=== PATIENT | male | born 1960 | race African-American/Black ===

== ENCOUNTER 2017-07-15 09:16 | Emergency (ER) | payer SELFPAY ==
[~2017-07-15 09:16] MED LIST: BENZ1TAB10 PO; DIVA500T35 PO; HALO5 PO; METF1000 PO
== END 2017-07-15 09:45 | disposition left against medical advice (07) ==
LOC: EMS 09:16
DX: F20.9 Schizophrenia, unspecified (principal)
CPT/HCPCS: 99284

== ENCOUNTER 2018-08-07 13:05 | Inpatient (IN) | payer MEDICAID ==
[~2018-08-07] VITALS: Ht 170.2 cm; Wt 63.0 kg
[~2018-08-07 13:05] MED LIST changes: +DIVA-78 PO; -DIVA500T35 PO; -HALO5 PO; +PALI234D IM
[2018-08-07] MEDS ORDERED: LORazepam 2 MG/ML VIAL IM ONE (14:45)
[2018-08-07] MEDS ORDERED: HALOPERIDOL LACTATE 5 MG/ML VIAL IM ONE (14:45)
[2018-08-07] MEDS ORDERED: HALOPERIDOL 5 MG TABLET PO PRN (15:15)
[2018-08-07] MEDS ORDERED: ZOLPIDEM TARTRATE 10 MG TABLET PO PRN (15:15)
[2018-08-07 15:54] LABS: BASOPHILS % (AUTO) 0.8 % (0.0-2.0); EOSINOPHILS % (AUTO) 5.1 % (1.0-6.0); HEMATOCRIT 38.9 % (41-53); HEMOGLOBIN 13.4 g/dL (13.5-17.5); LYMPHOCYTES # (AUTO) 1.6 K/uL (1.0-4.8); MEAN CORPUSCULAR HEMOGLOBIN 28.4 pg (26.0-34.0); MEAN CORPUSCULAR HGB CONC 34.5 G/dL (31.0-37.0); MEAN CORPUSCULAR VOLUME 82 fL (80-100); MONOCYTES # (AUTO) 0.4 K/uL (0.1-1.0); MONOCYTES % (AUTO) 7.6 % (2.0-9.0); NEUTROPHILS # (AUTO) 2.9 K/uL (1.8-7.7); NEUTROPHILS % (AUTO) 56.5 % (40.0-70.0); PLATELET COUNT (AUTO) 261 K/uL (150-450); RED BLOOD CELL COUNT(AUTO) 4.73 MIL/uL (4.50-5.90)
[2018-08-07 16:04] LABS: ANION GAP 8 mmol/L (8-16); CARBON DIOXIDE 27 mmol/L (22-29); CHLORIDE 100 mmol/L (98-107); CREATININE 0.92 mg/dL (0.60-1.30); GLOMERULAR FILTR. RATE CALC > 60 mL/min (>60); GLUCOSE,RANDOM 335 mg/dL (70-110); POTASSIUM 3.9 mmol/L (3.5-5.1); SODIUM SERUM 135 mmol/L (136-145); UREA NITROGEN, BLOOD 12 mg/dL (7-18)
[2018-08-07 16:11] LABS: ALANINE AMINOTRANSFERASE 14 U/L (12-78); ALBUMIN 3.6 g/dL (3.4-5.0); ALKALINE PHOSPHATASE 62 U/L (46-116); ASPARTATE AMINOTRANSFERASE 12 U/L (15-37); BILIRUBIN,TOTAL 0.5 mg/dL (0.1-1.0); TOTAL PROTEIN, SERUM 6.8 g/dL (6.4-8.2)
[2018-08-07 16:12] LABS: VALPROIC ACID < 3 mcg/mL (50-100)
[2018-08-07] MEDS ORDERED: INSULIN REGULAR, HUMAN 100 UNITS/ML SQ ONE (16:15)
[2018-08-07 17:53] LABS: GLUCOSE,POINT OF CARE 291 MG/DL (70-110)
[2018-08-07 18:57] VITALS: BP 107/61
[2018-08-07 19:13] LABS: GLUCOMETER DEV NAME(LOC) BV3N5; GLUCOSE,POINT OF CARE 311 MG/DL (70-110)
[2018-08-07] MEDS ORDERED: ONDANSETRON HCL 4 MG TABLET PO PRN (19:15)
[2018-08-07] MEDS ORDERED: GuaiFENesin/D-METHORPHAN [SUGAR-FREE] 200-20MG/10 ML SYRUP UDCUP PO PRN (19:15)
[2018-08-07] MEDS ORDERED: ALBUTEROL SULFATE HFA 90 MCG/PUFF 8 GM INHALER IH PRN (19:15)
[2018-08-07] MEDS ORDERED: LOPERAMIDE HCL 2 MG CAPSULE PO PRN (19:15)
[2018-08-07] MEDS ORDERED: DOCUSATE SODIUM 100 MG CAPSULE PO PRN (19:15)
[2018-08-07] MEDS ORDERED: ACETAMINOPHEN 325 MG TABLET PO PRN (19:15)
[2018-08-07] MEDS ORDERED: CloNIDine HCL 0.1 MG TABLET PO PRN (19:15)
[2018-08-07] MEDS ORDERED: MAG HYDROX/AL HYDROX/SIMETH ES 30 ML SUSPENSION UDCUP PO PRN (19:15)
[2018-08-07] MEDS ORDERED: PETROLATUM,WHITE 71 GM JELLY TP PRN (19:15)
[2018-08-07] MEDS ORDERED: NICOTINE 14 MG/24 HOUR PATCH TD PRN (19:15)
[2018-08-07] MEDS ORDERED: IBUPROFEN 400 MG TABLET PO PRN (19:15)
[2018-08-07] MEDS ORDERED: GLUCAGON,HUMAN RECOMBINANT 1 MG VIAL IM PRN (19:15)
[2018-08-07] MEDS ORDERED: MAGNESIUM HYDROXIDE SUSPENSION 30 ML UDCUP PO PRN (19:15)
[2018-08-07 21:09] LABS: GLUCOMETER DEV NAME(LOC) BV3N5; GLUCOSE,POINT OF CARE 321 MG/DL (70-110)
[2018-08-07] MEDS: INSULIN LISPRO 100 UNITS/ML SQ PRN (21:10)
[2018-08-08] MEDS: FERROUS SULFATE 325 MG EC TABLET PO SCH ×3 (06:21→16:36)
[2018-08-08] MEDS: MetFORMIN HCL 500 MG TABLET PO SCH ×2 (06:22→16:36)
[2018-08-08 06:33] VITALS: BP 114/68
[2018-08-08 08:02] VITALS: BP 108/68
[2018-08-08] MEDS: INSULIN LISPRO 100 UNITS/ML SQ PRN (11:41)
[2018-08-08 11:44] LABS: GLUCOMETER DEV NAME(LOC) BV3N5; GLUCOSE,POINT OF CARE 351 MG/DL (70-110)
[2018-08-08] MEDS: PALIPERIDONE 6 MG ER TABLET PO SCH (20:20)
[2018-08-09] MEDS ORDERED: INSULIN REGULAR, HUMAN 100 UNITS/ML SQ ONE (06:15)
[2018-08-09 06:19] LABS: GLUCOMETER DEV NAME(LOC) BV3N5; GLUCOSE,POINT OF CARE 348 MG/DL (70-110)
[2018-08-09 06:19] LABS: GLUCOMETER DEV NAME(LOC) BV3N5; GLUCOSE,POINT OF CARE 402 MG/DL (70-110)
[2018-08-09] MEDS: MetFORMIN HCL 500 MG TABLET PO SCH ×2 (06:19→17:00)
[2018-08-09] MEDS: FERROUS SULFATE 325 MG EC TABLET PO SCH ×3 (06:19→17:00)
[2018-08-09 06:30] VITALS: BP 114/72
[2018-08-09 07:47] LABS: HEMOGLOBIN A1C 10.9 % (4.5-6.2)
[2018-08-09 07:59] LABS: THYROID STIMULATING HORMONE 1.07 uIU/mL (0.36-3.74)
[2018-08-09 12:14] LABS: GLUCOMETER DEV NAME(LOC) BV3N5; GLUCOSE,POINT OF CARE 305 MG/DL (70-110)
[2018-08-09] MEDS: PALIPERIDONE 6 MG ER TABLET PO SCH (20:51)
[2018-08-10] MEDS: FERROUS SULFATE 325 MG EC TABLET PO SCH ×3 (06:15→16:10)
[2018-08-10] MEDS: MetFORMIN HCL 500 MG TABLET PO SCH ×2 (06:15→16:11)
[2018-08-10] MEDS: PALIPERIDONE 6 MG ER TABLET PO SCH (20:35)
[2018-08-11] MEDS: MetFORMIN HCL 500 MG TABLET PO SCH ×2 (07:00→16:21)
[2018-08-11] MEDS: FERROUS SULFATE 325 MG EC TABLET PO SCH ×3 (07:00→16:21)
[2018-08-11] MEDS: PALIPERIDONE 6 MG ER TABLET PO SCH (20:05)
[2018-08-12] MEDS: MetFORMIN HCL 500 MG TABLET PO SCH ×2 (06:44→16:46)
[2018-08-12] MEDS: FERROUS SULFATE 325 MG EC TABLET PO SCH ×3 (06:44→16:46)
[2018-08-12] MEDS: PALIPERIDONE 6 MG ER TABLET PO SCH (20:20)
[2018-08-13] MEDS: FERROUS SULFATE 325 MG EC TABLET PO SCH ×3 (06:37→17:00)
[2018-08-13] MEDS: MetFORMIN HCL 500 MG TABLET PO SCH ×2 (06:37→17:00)
[2018-08-13] MEDS: PALIPERIDONE 6 MG ER TABLET PO SCH (20:04)
[2018-08-14] MEDS: FERROUS SULFATE 325 MG EC TABLET PO SCH ×3 (06:35→16:40)
[2018-08-14] MEDS: MetFORMIN HCL 500 MG TABLET PO SCH ×2 (06:35→16:40)
[2018-08-14] MEDS ORDERED: HALOPERIDOL LACTATE 5 MG/ML VIAL IM PRN (16:30)
[2018-08-14] MEDS: PALIPERIDONE 6 MG ER TABLET PO SCH (20:45)
[2018-08-15] MEDS: MetFORMIN HCL 500 MG TABLET PO SCH ×2 (06:50→16:46)
[2018-08-15] MEDS: FERROUS SULFATE 325 MG EC TABLET PO SCH ×3 (06:50→16:46)
[2018-08-15] MEDS ORDERED: FERR-89 PO (13:11)
[2018-08-15] MEDS ORDERED: PALI6 PO (13:11)
[2018-08-15 16:30] VITALS: BP 103/65
[2018-08-15] MEDS: INSULIN LISPRO 100 UNITS/ML SQ PRN ×2 (17:17→21:01)
[2018-08-15] MEDS: PALIPERIDONE 6 MG ER TABLET PO SCH (20:46)
[2018-08-16 02:45] VITALS: BP 106/69
[2018-08-16] MEDS: MetFORMIN HCL 500 MG TABLET PO SCH ×2 (06:11→16:40)
[2018-08-16] MEDS: FERROUS SULFATE 325 MG EC TABLET PO SCH ×3 (06:11→16:40)
[2018-08-16] MEDS: INSULIN LISPRO 100 UNITS/ML SQ PRN ×4 (06:36→20:50)
[2018-08-16 08:01] VITALS: BP 106/67
[2018-08-16 08:52] LABS: BASOPHILS % (AUTO) 0.5 % (0.0-2.0); EOSINOPHILS % (AUTO) 1.3 % (1.0-6.0); HEMATOCRIT 36.2 % (41-53); HEMOGLOBIN 12.7 g/dL (13.5-17.5); LYMPHOCYTES % (AUTO) 26.8 % (22.0-44.0); MEAN CORPUSCULAR HEMOGLOBIN 28.4 pg (26.0-34.0); MEAN CORPUSCULAR VOLUME 81 fL (80-100); MONOCYTES # (AUTO) 0.4 K/uL (0.1-1.0); MONOCYTES % (AUTO) 4.9 % (2.0-9.0); NEUTROPHILS # (AUTO) 4.9 K/uL (1.8-7.7); NEUTROPHILS % (AUTO) 66.5 % (40.0-70.0); PLATELET COUNT (AUTO) 259 K/uL (150-450); RED BLOOD CELL COUNT(AUTO) 4.47 MIL/uL (4.50-5.90); RED CELL DISTRIBUTION WIDTH 13.1 % (11.5-14.5)
[2018-08-16 09:10] LABS: ALANINE AMINOTRANSFERASE 17 U/L (12-78); ALBUMIN 3.1 g/dL (3.4-5.0); ALKALINE PHOSPHATASE 53 U/L (46-116); ANION GAP 2 mmol/L (8-16); ASPARTATE AMINOTRANSFERASE 9 U/L (15-37); BILIRUBIN,TOTAL 0.3 mg/dL (0.1-1.0); CALCIUM, TOTAL 8.9 mg/dL (8.8-10.5); CARBON DIOXIDE 30 mmol/L (22-29); CHLORIDE 104 mmol/L (98-107); CHOL/HDL RATIO 5.5 (4.2-7.3); CHOLESTEROL 205 mg/dL (131-200); CREATININE 0.83 mg/dL (0.60-1.30); GLOMERULAR FILTR. RATE CALC > 60 mL/min (>60); GLUCOSE,RANDOM 319 mg/dL (70-110); HDL CHOLESTEROL 37 mg/dL (40-60); LDL CHOL (CALC.) 133 mg/dL (0-130); POTASSIUM 4.4 mmol/L (3.5-5.1); SODIUM SERUM 136 mmol/L (136-145); TRIGLYCERIDES 177 mg/dL (15-150); UREA NITROGEN, BLOOD 17 mg/dL (7-18)
[2018-08-16 11:58] LABS: GLUCOMETER DEV NAME(LOC) BV3N5; GLUCOSE,POINT OF CARE > 600 MG/DL (70-110)
[2018-08-16] MEDS ORDERED: INSULIN LISPRO 100 UNITS/ML SQ ONE (12:00)
[2018-08-16 15:57] LABS: GLUCOMETER DEV NAME(LOC) BV3N5; GLUCOSE,POINT OF CARE 180 MG/DL (70-110)
[2018-08-16 16:19] LABS: GLUCOMETER DEV NAME(LOC) BV3N5; GLUCOSE,POINT OF CARE 343 MG/DL (70-110)
[2018-08-16] MEDS: LORazepam 2 MG TABLET PO PRN (16:40)
[2018-08-16 16:43] LABS: GLUCOMETER DEV NAME(LOC) BV3N5; GLUCOSE,POINT OF CARE 343 MG/DL (70-110)
[2018-08-16 16:44] LABS: GLUCOMETER DEV NAME(LOC) BV3N5; GLUCOSE,POINT OF CARE 409 MG/DL (70-110)
[2018-08-16 17:35] VITALS: BP 111/63
[2018-08-16 17:35] LABS: GLUCOMETER DEV NAME(LOC) BV3N5; GLUCOSE,POINT OF CARE 294 MG/DL (70-110)
[2018-08-16] MEDS: PALIPERIDONE 6 MG ER TABLET PO SCH (20:56)
[2018-08-16 21:24] LABS: GLUCOMETER DEV NAME(LOC) BV3N5; GLUCOSE,POINT OF CARE 206 MG/DL (70-110)
[2018-08-17 03:27] VITALS: BP 119/58
[2018-08-17 06:24] LABS: GLUCOMETER DEV NAME(LOC) BV3N5; GLUCOSE,POINT OF CARE 338 MG/DL (70-110)
[2018-08-17] MEDS: MetFORMIN HCL 500 MG TABLET PO SCH ×2 (06:26→16:59)
[2018-08-17] MEDS: FERROUS SULFATE 325 MG EC TABLET PO SCH ×3 (06:26→16:59)
[2018-08-17] MEDS: INSULIN LISPRO 100 UNITS/ML SQ PRN ×4 (06:47→20:51)
[2018-08-17 11:59] LABS: GLUCOMETER DEV NAME(LOC) BV3N5; GLUCOSE,POINT OF CARE 315 MG/DL (70-110)
[2018-08-17 16:00] VITALS: BP 113/65
[2018-08-17 17:09] LABS: GLUCOMETER DEV NAME(LOC) BV3N5; GLUCOSE,POINT OF CARE 343 MG/DL (70-110)
[2018-08-17 20:58] LABS: GLUCOMETER DEV NAME(LOC) BV3N5; GLUCOSE,POINT OF CARE 290 MG/DL (70-110)
[2018-08-17] MEDS ORDERED: PALIPERIDONE 3 MG ER TABLET PO SCH (21:00)
[2018-08-18 05:14] VITALS: BP 105/62
[2018-08-18 06:10] LABS: GLUCOMETER DEV NAME(LOC) BV3N5; GLUCOSE,POINT OF CARE 327 MG/DL (70-110)
[2018-08-18] MEDS: MetFORMIN HCL 500 MG TABLET PO SCH ×2 (06:11→16:33)
[2018-08-18] MEDS: FERROUS SULFATE 325 MG EC TABLET PO SCH ×3 (06:11→16:33)
[2018-08-18] MEDS: INSULIN LISPRO 100 UNITS/ML SQ PRN ×3 (06:36→16:30)
[2018-08-18 08:02] VITALS: BP 108/67
[2018-08-18 11:49] LABS: GLUCOMETER DEV NAME(LOC) BV3N5; GLUCOSE,POINT OF CARE 301 MG/DL (70-110)
[2018-08-18 16:00] VITALS: BP 105/63
[2018-08-18 16:54] LABS: GLUCOMETER DEV NAME(LOC) BV3N5; GLUCOSE,POINT OF CARE 328 MG/DL (70-110)
[2018-08-18] MEDS: PALIPERIDONE 6 MG ER TABLET PO SCH (20:51)
[2018-08-18 21:08] LABS: GLUCOMETER DEV NAME(LOC) BV3N5; GLUCOSE,POINT OF CARE 281 MG/DL (70-110)
[2018-08-19 05:01] VITALS: BP 101/68
[2018-08-19] MEDS: FERROUS SULFATE 325 MG EC TABLET PO SCH ×3 (06:52→16:47)
[2018-08-19] MEDS: MetFORMIN HCL 500 MG TABLET PO SCH ×2 (06:52→16:47)
[2018-08-19 08:02] VITALS: BP 102/60
[2018-08-19 11:23] LABS: GLUCOMETER DEV NAME(LOC) BV3N5; GLUCOSE,POINT OF CARE 368 MG/DL (70-110)
[2018-08-19] MEDS: INSULIN LISPRO 100 UNITS/ML SQ PRN ×3 (11:54→21:20)
[2018-08-19 16:00] VITALS: BP 105/65
[2018-08-19 17:29] LABS: GLUCOMETER DEV NAME(LOC) BV3N5; GLUCOSE,POINT OF CARE 281 MG/DL (70-110)
[2018-08-19] MEDS: PALIPERIDONE 6 MG ER TABLET PO SCH (21:15)
[2018-08-19 21:59] LABS: GLUCOMETER DEV NAME(LOC) BV3N5; GLUCOSE,POINT OF CARE 284 MG/DL (70-110)
[2018-08-20 06:04] VITALS: BP 112/67
[2018-08-20 06:49] LABS: GLUCOMETER DEV NAME(LOC) BV3N5; GLUCOSE,POINT OF CARE 279 MG/DL (70-110)
[2018-08-20] MEDS: INSULIN LISPRO 100 UNITS/ML SQ PRN ×4 (07:00→20:53)
[2018-08-20] MEDS: FERROUS SULFATE 325 MG EC TABLET PO SCH ×3 (07:01→17:00)
[2018-08-20] MEDS: GlipiZIDE 5 MG TABLET PO SCH (07:01)
[2018-08-20] MEDS: MetFORMIN HCL 500 MG TABLET PO SCH ×2 (07:02→17:00)
[2018-08-20 11:24] LABS: GLUCOMETER DEV NAME(LOC) BV3N5; GLUCOSE,POINT OF CARE 244 MG/DL (70-110)
[2018-08-20 16:27] VITALS: BP 115/60
[2018-08-20] MEDS: LORazepam 2 MG TABLET PO PRN (17:00)
[2018-08-20 17:19] LABS: GLUCOMETER DEV NAME(LOC) BV3N5; GLUCOSE,POINT OF CARE 296 MG/DL (70-110)
[2018-08-20] MEDS: PALIPERIDONE 6 MG ER TABLET PO SCH (20:43)
[2018-08-20 21:14] LABS: GLUCOMETER DEV NAME(LOC) BV3N5; GLUCOSE,POINT OF CARE 268 MG/DL (70-110)
[2018-08-21 03:40] VITALS: BP 112/67
[2018-08-21 06:40] LABS: GLUCOMETER DEV NAME(LOC) BV3N5; GLUCOSE,POINT OF CARE 275 MG/DL (70-110)
[2018-08-21] MEDS: GlipiZIDE 5 MG TABLET PO SCH (06:42)
[2018-08-21] MEDS: MetFORMIN HCL 500 MG TABLET PO SCH ×2 (06:42→16:56)
[2018-08-21] MEDS: FERROUS SULFATE 325 MG EC TABLET PO SCH ×3 (06:42→16:56)
[2018-08-21] MEDS: INSULIN LISPRO 100 UNITS/ML SQ PRN ×4 (06:50→20:31)
[2018-08-21 08:49] VITALS: BP 112/68
[2018-08-21 12:04] LABS: GLUCOMETER DEV NAME(LOC) BV3N5; GLUCOSE,POINT OF CARE 239 MG/DL (70-110)
[2018-08-21 17:29] LABS: GLUCOMETER DEV NAME(LOC) BV3N5; GLUCOSE,POINT OF CARE 322 MG/DL (70-110)
[2018-08-21] MEDS: PALIPERIDONE 6 MG ER TABLET PO SCH (20:30)
[2018-08-21 20:49] LABS: GLUCOMETER DEV NAME(LOC) BV3N5; GLUCOSE,POINT OF CARE 252 MG/DL (70-110)
[2018-08-22 05:20] VITALS: BP 107/63
[2018-08-22 06:14] LABS: GLUCOMETER DEV NAME(LOC) BV3N5; GLUCOSE,POINT OF CARE 306 MG/DL (70-110)
[2018-08-22] MEDS: GlipiZIDE 5 MG TABLET PO SCH (06:16)
[2018-08-22] MEDS: MetFORMIN HCL 500 MG TABLET PO SCH ×2 (06:17→16:35)
[2018-08-22] MEDS: FERROUS SULFATE 325 MG EC TABLET PO SCH ×3 (06:17→16:35)
[2018-08-22] MEDS: INSULIN LISPRO 100 UNITS/ML SQ PRN ×4 (06:24→21:00)
[2018-08-22 11:34] LABS: GLUCOMETER DEV NAME(LOC) BV3N5; GLUCOSE,POINT OF CARE 334 MG/DL (70-110)
[2018-08-22 16:49] LABS: GLUCOMETER DEV NAME(LOC) BV3N5; GLUCOSE,POINT OF CARE 260 MG/DL (70-110)
[2018-08-22] MEDS: PALIPERIDONE 6 MG ER TABLET PO SCH (21:16)
[2018-08-22 21:28] LABS: GLUCOMETER DEV NAME(LOC) BV3N5; GLUCOSE,POINT OF CARE 270 MG/DL (70-110)
[2018-08-23] MEDS: GlipiZIDE 5 MG TABLET PO SCH (06:12)
[2018-08-23] MEDS: FERROUS SULFATE 325 MG EC TABLET PO SCH ×3 (06:12→17:00)
[2018-08-23] MEDS: MetFORMIN HCL 500 MG TABLET PO SCH ×2 (06:12→17:00)
[2018-08-23 06:14] LABS: GLUCOMETER DEV NAME(LOC) BV3N5; GLUCOSE,POINT OF CARE 292 MG/DL (70-110)
[2018-08-23] MEDS: INSULIN LISPRO 100 UNITS/ML SQ PRN ×4 (06:25→21:13)
[2018-08-23 06:31] VITALS: BP 110/71
[2018-08-23 08:02] VITALS: BP 111/74
[2018-08-23] MEDS: FLUoxetine HCL 20 MG CAPSULE PO SCH (09:00)
[2018-08-23 11:49] LABS: GLUCOMETER DEV NAME(LOC) BV3N5; GLUCOSE,POINT OF CARE 299 MG/DL (70-110)
[2018-08-23 16:02] VITALS: BP 116/70
[2018-08-23 17:19] LABS: GLUCOMETER DEV NAME(LOC) BV3N5; GLUCOSE,POINT OF CARE 281 MG/DL (70-110)
[2018-08-23] MEDS: PALIPERIDONE 6 MG ER TABLET PO SCH (21:10)
[2018-08-23 21:34] LABS: GLUCOMETER DEV NAME(LOC) BV3N5; GLUCOSE,POINT OF CARE 270 MG/DL (70-110)
[2018-08-24 06:04] VITALS: BP 111/68
[2018-08-24] MEDS: FERROUS SULFATE 325 MG EC TABLET PO SCH ×3 (06:31→17:08)
[2018-08-24] MEDS: MetFORMIN HCL 500 MG TABLET PO SCH ×2 (06:31→17:08)
[2018-08-24] MEDS: GlipiZIDE 5 MG TABLET PO SCH (06:31)
[2018-08-24 06:34] LABS: GLUCOMETER DEV NAME(LOC) BV3N5; GLUCOSE,POINT OF CARE 335 MG/DL (70-110)
[2018-08-24] MEDS: INSULIN LISPRO 100 UNITS/ML SQ PRN ×4 (06:41→20:50)
[2018-08-24] MEDS: FLUoxetine HCL 20 MG CAPSULE PO SCH (08:17)
[2018-08-24 08:37] VITALS: BP 112/71
[2018-08-24 11:59] LABS: GLUCOMETER DEV NAME(LOC) BV3N5; GLUCOSE,POINT OF CARE 240 MG/DL (70-110)
[2018-08-24 16:00] VITALS: BP 110/66
[2018-08-24] MEDS: DIVALPROEX SODIUM 250 MG DR TABLET PO SCH (17:08)
[2018-08-24 17:35] LABS: GLUCOMETER DEV NAME(LOC) BV3N5; GLUCOSE,POINT OF CARE 323 MG/DL (70-110)
[2018-08-24] MEDS: PALIPERIDONE 6 MG ER TABLET PO SCH (20:49)
[2018-08-24 21:04] LABS: GLUCOMETER DEV NAME(LOC) BV3N5; GLUCOSE,POINT OF CARE 254 MG/DL (70-110)
[2018-08-25 06:05] LABS: GLUCOMETER DEV NAME(LOC) BV3N5; GLUCOSE,POINT OF CARE 315 MG/DL (70-110)
[2018-08-25] MEDS: GlipiZIDE 5 MG TABLET PO SCH (06:11)
[2018-08-25] MEDS: MetFORMIN HCL 500 MG TABLET PO SCH ×2 (06:11→16:54)
[2018-08-25] MEDS: FERROUS SULFATE 325 MG EC TABLET PO SCH ×3 (06:11→16:53)
[2018-08-25 06:32] VITALS: BP 103/66
[2018-08-25] MEDS: INSULIN LISPRO 100 UNITS/ML SQ PRN ×4 (07:03→21:05)
[2018-08-25 08:03] VITALS: BP 111/62
[2018-08-25] MEDS: DIVALPROEX SODIUM 250 MG DR TABLET PO SCH ×2 (08:10→16:54)
[2018-08-25] MEDS: FLUoxetine HCL 20 MG CAPSULE PO SCH (08:10)
[2018-08-25 11:54] LABS: GLUCOMETER DEV NAME(LOC) BV3N5; GLUCOSE,POINT OF CARE 228 MG/DL (70-110)
[2018-08-25 16:00] VITALS: BP 116/68
[2018-08-25 17:45] LABS: GLUCOMETER DEV NAME(LOC) BV3N5; GLUCOSE,POINT OF CARE 202 MG/DL (70-110)
[2018-08-25] MEDS: PALIPERIDONE 6 MG ER TABLET PO SCH (21:02)
[2018-08-25 21:19] LABS: GLUCOMETER DEV NAME(LOC) BV3N5; GLUCOSE,POINT OF CARE 220 MG/DL (70-110)
[2018-08-26] MEDS: FERROUS SULFATE 325 MG EC TABLET PO SCH ×3 (06:48→16:45)
[2018-08-26] MEDS: MetFORMIN HCL 500 MG TABLET PO SCH ×2 (06:48→16:45)
[2018-08-26] MEDS: GlipiZIDE 5 MG TABLET PO SCH (06:48)
[2018-08-26] MEDS: INSULIN LISPRO 100 UNITS/ML SQ PRN ×4 (06:50→20:53)
[2018-08-26 06:59] VITALS: BP 100/60
[2018-08-26 06:59] LABS: GLUCOMETER DEV NAME(LOC) BV3N5; GLUCOSE,POINT OF CARE 274 MG/DL (70-110)
[2018-08-26 08:04] VITALS: BP 112/64
[2018-08-26] MEDS: DIVALPROEX SODIUM 250 MG DR TABLET PO SCH ×2 (08:39→16:45)
[2018-08-26] MEDS: FLUoxetine HCL 20 MG CAPSULE PO SCH (08:39)
[2018-08-26 11:58] LABS: GLUCOMETER DEV NAME(LOC) BV3N5; GLUCOSE,POINT OF CARE 161 MG/DL (70-110)
[2018-08-26 16:25] VITALS: BP 119/81
[2018-08-26 17:14] LABS: GLUCOMETER DEV NAME(LOC) BV3N5; GLUCOSE,POINT OF CARE 336 MG/DL (70-110)
[2018-08-26] MEDS: PALIPERIDONE 6 MG ER TABLET PO SCH (20:51)
[2018-08-26 21:09] LABS: GLUCOMETER DEV NAME(LOC) BV3N5; GLUCOSE,POINT OF CARE 232 MG/DL (70-110)
[2018-08-27 04:29] VITALS: BP 110/76
[2018-08-27] MEDS: GlipiZIDE 5 MG TABLET PO SCH (07:01)
[2018-08-27] MEDS: MetFORMIN HCL 500 MG TABLET PO SCH ×2 (07:01→16:50)
[2018-08-27] MEDS: FERROUS SULFATE 325 MG EC TABLET PO SCH ×3 (07:01→16:50)
[2018-08-27] MEDS: INSULIN LISPRO 100 UNITS/ML SQ PRN ×4 (07:15→21:00)
[2018-08-27 07:18] LABS: GLUCOMETER DEV NAME(LOC) BV3N5; GLUCOSE,POINT OF CARE 236 MG/DL (70-110)
[2018-08-27 08:15] VITALS: BP 105/60
[2018-08-27] MEDS: FLUoxetine HCL 20 MG CAPSULE PO SCH (09:01)
[2018-08-27] MEDS: DIVALPROEX SODIUM 250 MG DR TABLET PO SCH (09:01)
[2018-08-27 11:29] LABS: GLUCOMETER DEV NAME(LOC) BV3N5; GLUCOSE,POINT OF CARE 164 MG/DL (70-110)
[2018-08-27] MEDS: DIVALPROEX SODIUM 500 MG DR TABLET PO SCH (16:50)
[2018-08-27 17:09] LABS: GLUCOMETER DEV NAME(LOC) BV3N5; GLUCOSE,POINT OF CARE 221 MG/DL (70-110)
[2018-08-27 21:08] LABS: GLUCOMETER DEV NAME(LOC) BV3N5; GLUCOSE,POINT OF CARE 205 MG/DL (70-110)
[2018-08-27] MEDS: PALIPERIDONE 6 MG ER TABLET PO SCH (21:08)
[2018-08-28 06:29] LABS: GLUCOMETER DEV NAME(LOC) BV3N5; GLUCOSE,POINT OF CARE 206 MG/DL (70-110)
[2018-08-28] MEDS: GlipiZIDE 5 MG TABLET PO SCH (06:34)
[2018-08-28] MEDS: MetFORMIN HCL 500 MG TABLET PO SCH ×2 (06:34→16:57)
[2018-08-28] MEDS: FERROUS SULFATE 325 MG EC TABLET PO SCH ×3 (06:34→16:57)
[2018-08-28] MEDS: INSULIN LISPRO 100 UNITS/ML SQ PRN ×4 (06:44→21:21)
[2018-08-28 07:56] LABS: BASOPHILS % (AUTO) 0.6 % (0.0-2.0); EOSINOPHILS % (AUTO) 3.5 % (1.0-6.0); HEMATOCRIT 36.9 % (41-53); HEMOGLOBIN 12.9 g/dL (13.5-17.5); LYMPHOCYTES % (AUTO) 36.3 % (22.0-44.0); MEAN CORPUSCULAR HEMOGLOBIN 28.6 pg (26.0-34.0); MEAN CORPUSCULAR VOLUME 82 fL (80-100); MONOCYTES # (AUTO) 0.4 K/uL (0.1-1.0); NEUTROPHILS # (AUTO) 2.8 K/uL (1.8-7.7); NEUTROPHILS % (AUTO) 52.6 % (40.0-70.0); PLATELET COUNT (AUTO) 288 K/uL (150-450); RED BLOOD CELL COUNT(AUTO) 4.51 MIL/uL (4.50-5.90); RED CELL DISTRIBUTION WIDTH 14.4 % (11.5-14.5)
[2018-08-28] MEDS: DIVALPROEX SODIUM 500 MG DR TABLET PO SCH ×2 (08:21→16:57)
[2018-08-28] MEDS: FLUoxetine HCL 20 MG CAPSULE PO SCH (08:21)
[2018-08-28 08:30] LABS: ALANINE AMINOTRANSFERASE 14 U/L (12-78); ALBUMIN 3.1 g/dL (3.4-5.0); ALKALINE PHOSPHATASE 53 U/L (46-116); ANION GAP 5 mmol/L (8-16); ASPARTATE AMINOTRANSFERASE 8 U/L (15-37); BILIRUBIN,TOTAL 0.3 mg/dL (0.1-1.0); CALCIUM, TOTAL 8.8 mg/dL (8.8-10.5); CARBON DIOXIDE 28 mmol/L (22-29); CHLORIDE 100 mmol/L (98-107); GLOMERULAR FILTR. RATE CALC > 60 mL/min (>60); GLUCOSE,RANDOM 187 mg/dL (70-110); POTASSIUM 4.2 mmol/L (3.5-5.1); SODIUM SERUM 133 mmol/L (136-145); UREA NITROGEN, BLOOD 14 mg/dL (7-18); VALPROIC ACID 47 mcg/mL (50-100)
[2018-08-28 11:24] LABS: GLUCOMETER DEV NAME(LOC) BV3N5; GLUCOSE,POINT OF CARE 175 MG/DL (70-110)
[2018-08-28 16:05] VITALS: BP 112/76
[2018-08-28 20:49] LABS: GLUCOMETER DEV NAME(LOC) BV3N5; GLUCOSE,POINT OF CARE 199 MG/DL (70-110)
[2018-08-28 20:49] LABS: GLUCOMETER DEV NAME(LOC) BV3N5; GLUCOSE,POINT OF CARE 220 MG/DL (70-110)
[2018-08-28] MEDS: PALIPERIDONE 6 MG ER TABLET PO SCH (21:00)
[2018-08-29 06:07] VITALS: BP 110/85
[2018-08-29] MEDS: INSULIN LISPRO 100 UNITS/ML SQ PRN ×4 (06:17→21:00)
[2018-08-29] MEDS: MetFORMIN HCL 500 MG TABLET PO SCH ×2 (06:18→17:03)
[2018-08-29] MEDS: FERROUS SULFATE 325 MG EC TABLET PO SCH ×3 (06:18→17:03)
[2018-08-29] MEDS: GlipiZIDE 5 MG TABLET PO SCH (06:18)
[2018-08-29 06:19] LABS: GLUCOMETER DEV NAME(LOC) BV3N5; GLUCOSE,POINT OF CARE 252 MG/DL (70-110)
[2018-08-29 08:39] VITALS: BP 107/63
[2018-08-29] MEDS: DIVALPROEX SODIUM 500 MG DR TABLET PO SCH ×2 (08:49→17:03)
[2018-08-29] MEDS: FLUoxetine HCL 20 MG CAPSULE PO SCH (08:49)
[2018-08-29 12:09] LABS: GLUCOMETER DEV NAME(LOC) BV3N5; GLUCOSE,POINT OF CARE 191 MG/DL (70-110)
[2018-08-29 16:23] VITALS: BP 105/65
[2018-08-29 17:29] LABS: GLUCOMETER DEV NAME(LOC) BV3N5; GLUCOSE,POINT OF CARE 192 MG/DL (70-110)
[2018-08-29] MEDS: PALIPERIDONE 6 MG ER TABLET PO SCH (20:57)
[2018-08-29 21:19] LABS: GLUCOMETER DEV NAME(LOC) BV3N5; GLUCOSE,POINT OF CARE 155 MG/DL (70-110)
[2018-08-30] MEDS: FERROUS SULFATE 325 MG EC TABLET PO SCH ×3 (06:23→16:58)
[2018-08-30] MEDS: MetFORMIN HCL 500 MG TABLET PO SCH ×2 (06:23→16:58)
[2018-08-30] MEDS: GlipiZIDE 5 MG TABLET PO SCH ×2 (06:29→16:57)
[2018-08-30] MEDS: INSULIN LISPRO 100 UNITS/ML SQ PRN ×4 (06:34→21:08)
[2018-08-30 06:39] LABS: GLUCOMETER DEV NAME(LOC) BV3N5; GLUCOSE,POINT OF CARE 250 MG/DL (70-110)
[2018-08-30 08:00] VITALS: BP 106/65
[2018-08-30] MEDS: DIVALPROEX SODIUM 500 MG DR TABLET PO SCH ×2 (08:57→16:57)
[2018-08-30] MEDS: FLUoxetine HCL 20 MG CAPSULE PO SCH (08:57)
[2018-08-30 11:59] LABS: GLUCOMETER DEV NAME(LOC) BV3N5; GLUCOSE,POINT OF CARE 222 MG/DL (70-110)
[2018-08-30 16:21] VITALS: BP 110/77
[2018-08-30 17:34] LABS: GLUCOMETER DEV NAME(LOC) BV3N5; GLUCOSE,POINT OF CARE 249 MG/DL (70-110)
[2018-08-30] MEDS: PALIPERIDONE 6 MG ER TABLET PO SCH (21:06)
[2018-08-30 21:14] LABS: GLUCOMETER DEV NAME(LOC) BV3N5; GLUCOSE,POINT OF CARE 201 MG/DL (70-110)
[2018-08-31 05:50] LABS: GLUCOMETER DEV NAME(LOC) BV3N5; GLUCOSE,POINT OF CARE 213 MG/DL (70-110)
[2018-08-31] MEDS: GlipiZIDE 5 MG TABLET PO SCH ×2 (06:18→17:09)
[2018-08-31] MEDS: FERROUS SULFATE 325 MG EC TABLET PO SCH ×3 (06:18→17:09)
[2018-08-31] MEDS: MetFORMIN HCL 500 MG TABLET PO SCH ×2 (06:18→17:09)
[2018-08-31] MEDS: INSULIN LISPRO 100 UNITS/ML SQ PRN ×3 (06:42→16:30)
[2018-08-31 08:07] VITALS: BP 105/64
[2018-08-31 08:09] VITALS: BP 120/87
[2018-08-31] MEDS: DIVALPROEX SODIUM 500 MG DR TABLET PO SCH (08:14)
[2018-08-31] MEDS: FLUoxetine HCL 20 MG CAPSULE PO SCH (08:14)
[2018-08-31 11:50] LABS: GLUCOMETER DEV NAME(LOC) BV3N5; GLUCOSE,POINT OF CARE 158 MG/DL (70-110)
[2018-08-31 16:00] VITALS: BP 108/66
[2018-08-31] MEDS: DIVALPROEX SODIUM 250 MG DR TABLET PO SCH (17:09)
[2018-08-31 17:50] LABS: GLUCOMETER DEV NAME(LOC) BV3N5; GLUCOSE,POINT OF CARE 278 MG/DL (70-110)
[2018-08-31] MEDS: PALIPERIDONE 6 MG ER TABLET PO SCH (21:06)
[2018-09-01 04:45] VITALS: BP 102/62
[2018-09-01] MEDS: MetFORMIN HCL 500 MG TABLET PO SCH ×2 (06:33→16:36)
[2018-09-01] MEDS: FERROUS SULFATE 325 MG EC TABLET PO SCH ×3 (06:33→16:36)
[2018-09-01] MEDS: GlipiZIDE 5 MG TABLET PO SCH ×2 (06:33→16:36)
[2018-09-01] MEDS: INSULIN LISPRO 100 UNITS/ML SQ PRN ×2 (06:39→16:30)
[2018-09-01 06:50] LABS: GLUCOMETER DEV NAME(LOC) BV3N5; GLUCOSE,POINT OF CARE 169 MG/DL (70-110)
[2018-09-01 08:02] VITALS: BP 95/58
[2018-09-01] MEDS ORDERED: PALIPERIDONE PALMITATE 234 MG/1.5 ML SYRINGE IM ONE (09:00)
[2018-09-01] MEDS: DIVALPROEX SODIUM 250 MG DR TABLET PO SCH ×2 (09:11→16:36)
[2018-09-01] MEDS: FLUoxetine HCL 20 MG CAPSULE PO SCH (09:11)
[2018-09-01 11:44] LABS: GLUCOMETER DEV NAME(LOC) BV3N5; GLUCOSE,POINT OF CARE 130 MG/DL (70-110)
[2018-09-01 16:00] VITALS: BP 104/63
[2018-09-01 17:04] LABS: GLUCOMETER DEV NAME(LOC) BV3N5; GLUCOSE,POINT OF CARE 205 MG/DL (70-110)
[2018-09-01] MEDS: PALIPERIDONE 6 MG ER TABLET PO SCH (20:30)
[2018-09-02 06:13] VITALS: BP 100/61
[2018-09-02] MEDS: FERROUS SULFATE 325 MG EC TABLET PO SCH ×3 (06:44→16:55)
[2018-09-02] MEDS: MetFORMIN HCL 500 MG TABLET PO SCH ×2 (06:44→17:05)
[2018-09-02] MEDS: GlipiZIDE 5 MG TABLET PO SCH ×2 (06:44→16:55)
[2018-09-02] MEDS: INSULIN LISPRO 100 UNITS/ML SQ PRN ×4 (06:45→20:50)
[2018-09-02 06:54] LABS: GLUCOMETER DEV NAME(LOC) BV3N5; GLUCOSE,POINT OF CARE 189 MG/DL (70-110)
[2018-09-02 08:09] VITALS: BP 104/69
[2018-09-02] MEDS: FLUoxetine HCL 20 MG CAPSULE PO SCH (08:16)
[2018-09-02] MEDS: DIVALPROEX SODIUM 250 MG DR TABLET PO SCH (08:16)
[2018-09-02 11:34] LABS: GLUCOMETER DEV NAME(LOC) BV3N5; GLUCOSE,POINT OF CARE 176 MG/DL (70-110)
[2018-09-02 16:00] VITALS: BP 105/66
[2018-09-02] MEDS: DIVALPROEX SODIUM 500 MG DR TABLET PO SCH (16:55)
[2018-09-02 17:44] LABS: GLUCOMETER DEV NAME(LOC) BV3N5; GLUCOSE,POINT OF CARE 150 MG/DL (70-110)
[2018-09-02] MEDS: PALIPERIDONE 6 MG ER TABLET PO SCH (20:47)
[2018-09-02 21:03] LABS: GLUCOMETER DEV NAME(LOC) BV3N5; GLUCOSE,POINT OF CARE 178 MG/DL (70-110)
[2018-09-03 05:22] VITALS: BP 102/60
[2018-09-03 06:09] LABS: GLUCOMETER DEV NAME(LOC) BV3N5; GLUCOSE,POINT OF CARE 167 MG/DL (70-110)
[2018-09-03] MEDS: GlipiZIDE 5 MG TABLET PO SCH ×2 (06:33→16:56)
[2018-09-03] MEDS: FERROUS SULFATE 325 MG EC TABLET PO SCH ×3 (06:34→16:56)
[2018-09-03] MEDS: MetFORMIN HCL 500 MG TABLET PO SCH ×2 (06:34→16:56)
[2018-09-03] MEDS: INSULIN LISPRO 100 UNITS/ML SQ PRN ×4 (06:38→20:57)
[2018-09-03 08:31] VITALS: BP 103/60
[2018-09-03] MEDS: FLUoxetine HCL 20 MG CAPSULE PO SCH (08:55)
[2018-09-03] MEDS: DIVALPROEX SODIUM 500 MG DR TABLET PO SCH ×2 (08:55→16:56)
[2018-09-03 11:29] LABS: GLUCOMETER DEV NAME(LOC) BV3N5; GLUCOSE,POINT OF CARE 228 MG/DL (70-110)
[2018-09-03 16:00] VITALS: BP 109/65
[2018-09-03 17:19] LABS: GLUCOMETER DEV NAME(LOC) BV3N5; GLUCOSE,POINT OF CARE 182 MG/DL (70-110)
[2018-09-03] MEDS: PALIPERIDONE 6 MG ER TABLET PO SCH (20:56)
[2018-09-03 21:24] LABS: GLUCOMETER DEV NAME(LOC) BV3N5; GLUCOSE,POINT OF CARE 195 MG/DL (70-110)
[2018-09-04 05:46] VITALS: BP 108/66
[2018-09-04 06:04] LABS: GLUCOMETER DEV NAME(LOC) BV3N5; GLUCOSE,POINT OF CARE 134 MG/DL (70-110)
[2018-09-04] MEDS: FERROUS SULFATE 325 MG EC TABLET PO SCH ×3 (06:16→17:03)
[2018-09-04] MEDS: MetFORMIN HCL 500 MG TABLET PO SCH ×2 (06:16→17:02)
[2018-09-04] MEDS: GlipiZIDE 5 MG TABLET PO SCH ×2 (06:48→17:02)
[2018-09-04 08:03] VITALS: BP 104/60
[2018-09-04] MEDS: FLUoxetine HCL 20 MG CAPSULE PO SCH (08:43)
[2018-09-04] MEDS: DIVALPROEX SODIUM 500 MG DR TABLET PO SCH ×2 (08:43→17:02)
[2018-09-04] MEDS: INSULIN LISPRO 100 UNITS/ML SQ PRN ×3 (11:54→20:32)
[2018-09-04 13:14] LABS: GLUCOMETER DEV NAME(LOC) BV3N5; GLUCOSE,POINT OF CARE 227 MG/DL (70-110)
[2018-09-04 16:04] VITALS: BP 130/89
[2018-09-04 17:18] LABS: GLUCOMETER DEV NAME(LOC) BV3N5; GLUCOSE,POINT OF CARE 186 MG/DL (70-110)
[2018-09-04] MEDS: PALIPERIDONE 6 MG ER TABLET PO SCH (20:30)
[2018-09-04 21:48] LABS: GLUCOMETER DEV NAME(LOC) BV3N5; GLUCOSE,POINT OF CARE 221 MG/DL (70-110)
[2018-09-05 05:34] VITALS: BP 108/61
[2018-09-05 06:18] LABS: GLUCOMETER DEV NAME(LOC) BV3N5; GLUCOSE,POINT OF CARE 224 MG/DL (70-110)
[2018-09-05] MEDS: FERROUS SULFATE 325 MG EC TABLET PO SCH ×3 (06:30→16:59)
[2018-09-05] MEDS: MetFORMIN HCL 500 MG TABLET PO SCH ×2 (06:30→16:59)
[2018-09-05] MEDS: GlipiZIDE 5 MG TABLET PO SCH ×2 (06:30→16:59)
[2018-09-05] MEDS: INSULIN LISPRO 100 UNITS/ML SQ PRN ×4 (06:35→21:16)
[2018-09-05 08:02] VITALS: BP 103/67
[2018-09-05] MEDS: FLUoxetine HCL 20 MG CAPSULE PO SCH (09:19)
[2018-09-05] MEDS: DIVALPROEX SODIUM 500 MG DR TABLET PO SCH ×2 (09:19→16:59)
[2018-09-05 11:44] LABS: GLUCOMETER DEV NAME(LOC) BV3N5; GLUCOSE,POINT OF CARE 236 MG/DL (70-110)
[2018-09-05 16:08] VITALS: BP 106/68
[2018-09-05 16:44] LABS: GLUCOMETER DEV NAME(LOC) BV3N5; GLUCOSE,POINT OF CARE 222 MG/DL (70-110)
[2018-09-05] MEDS: PALIPERIDONE 6 MG ER TABLET PO SCH (20:41)
[2018-09-05 21:18] LABS: GLUCOMETER DEV NAME(LOC) BV3N5; GLUCOSE,POINT OF CARE 226 MG/DL (70-110)
[2018-09-06 04:58] VITALS: BP 105/66
[2018-09-06 06:08] LABS: GLUCOMETER DEV NAME(LOC) BV3N5; GLUCOSE,POINT OF CARE 227 MG/DL (70-110)
[2018-09-06] MEDS: GlipiZIDE 5 MG TABLET PO SCH ×2 (06:14→16:49)
[2018-09-06] MEDS: MetFORMIN HCL 500 MG TABLET PO SCH ×2 (06:15→16:50)
[2018-09-06] MEDS: FERROUS SULFATE 325 MG EC TABLET PO SCH ×3 (06:15→16:50)
[2018-09-06] MEDS: INSULIN LISPRO 100 UNITS/ML SQ PRN ×4 (06:25→21:00)
[2018-09-06 08:00] VITALS: BP 105/65
[2018-09-06] MEDS: DIVALPROEX SODIUM 500 MG DR TABLET PO SCH ×2 (08:13→16:49)
[2018-09-06] MEDS: FLUoxetine HCL 20 MG CAPSULE PO SCH (08:13)
[2018-09-06 11:33] LABS: GLUCOMETER DEV NAME(LOC) BV3N5; GLUCOSE,POINT OF CARE 166 MG/DL (70-110)
[2018-09-06 15:58] VITALS: BP 116/64
[2018-09-06 16:30] VITALS: BP 116/64
[2018-09-06 17:08] LABS: GLUCOMETER DEV NAME(LOC) BV3N5; GLUCOSE,POINT OF CARE 239 MG/DL (70-110)
[2018-09-06] MEDS: PALIPERIDONE 6 MG ER TABLET PO SCH (20:40)
[2018-09-06 20:58] LABS: GLUCOMETER DEV NAME(LOC) BV3N5; GLUCOSE,POINT OF CARE 149 MG/DL (70-110)
[2018-09-07 05:24] VITALS: BP 110/65
[2018-09-07 06:18] LABS: GLUCOMETER DEV NAME(LOC) BV3N5; GLUCOSE,POINT OF CARE 162 MG/DL (70-110)
[2018-09-07] MEDS: INSULIN LISPRO 100 UNITS/ML SQ PRN ×4 (06:34→21:05)
[2018-09-07] MEDS: GlipiZIDE 5 MG TABLET PO SCH ×2 (06:43→16:47)
[2018-09-07] MEDS: MetFORMIN HCL 500 MG TABLET PO SCH ×2 (06:44→16:47)
[2018-09-07] MEDS: FERROUS SULFATE 325 MG EC TABLET PO SCH ×3 (06:44→16:47)
[2018-09-07 08:05] VITALS: BP 106/60
[2018-09-07] MEDS: DIVALPROEX SODIUM 500 MG DR TABLET PO SCH ×2 (08:51→16:47)
[2018-09-07] MEDS: FLUoxetine HCL 20 MG CAPSULE PO SCH (08:51)
[2018-09-07 11:33] LABS: GLUCOMETER DEV NAME(LOC) BV3N5; GLUCOSE,POINT OF CARE 196 MG/DL (70-110)
[2018-09-07 16:00] VITALS: BP 108/65
[2018-09-07 17:23] LABS: GLUCOMETER DEV NAME(LOC) BV3N5; GLUCOSE,POINT OF CARE 230 MG/DL (70-110)
[2018-09-07] MEDS: PALIPERIDONE 6 MG ER TABLET PO SCH (21:01)
[2018-09-07 21:32] LABS: GLUCOMETER DEV NAME(LOC) BV3N5; GLUCOSE,POINT OF CARE 236 MG/DL (70-110)
[2018-09-08 05:58] VITALS: BP 104/64
[2018-09-08 06:18] LABS: GLUCOMETER DEV NAME(LOC) BV3N5; GLUCOSE,POINT OF CARE 211 MG/DL (70-110)
[2018-09-08] MEDS: FERROUS SULFATE 325 MG EC TABLET PO SCH ×3 (06:24→16:57)
[2018-09-08] MEDS: MetFORMIN HCL 500 MG TABLET PO SCH ×2 (06:24→16:58)
[2018-09-08] MEDS: GlipiZIDE 5 MG TABLET PO SCH ×2 (06:39→16:58)
[2018-09-08] MEDS: INSULIN LISPRO 100 UNITS/ML SQ PRN ×4 (06:44→20:38)
[2018-09-08 08:17] VITALS: BP 103/63
[2018-09-08] MEDS: FLUoxetine HCL 20 MG CAPSULE PO SCH (09:48)
[2018-09-08] MEDS: DIVALPROEX SODIUM 500 MG DR TABLET PO SCH ×2 (09:48→16:58)
[2018-09-08 11:48] LABS: GLUCOMETER DEV NAME(LOC) BV3N5; GLUCOSE,POINT OF CARE 292 MG/DL (70-110)
[2018-09-08 16:19] VITALS: BP 112/60
[2018-09-08 17:18] LABS: GLUCOMETER DEV NAME(LOC) BV3N5; GLUCOSE,POINT OF CARE 201 MG/DL (70-110)
[2018-09-08] MEDS: PALIPERIDONE 6 MG ER TABLET PO SCH (20:33)
[2018-09-08 21:58] LABS: GLUCOMETER DEV NAME(LOC) BV3N5; GLUCOSE,POINT OF CARE 191 MG/DL (70-110)
[2018-09-09 05:37] VITALS: BP 107/64
[2018-09-09 06:28] LABS: GLUCOMETER DEV NAME(LOC) BV3S 2; GLUCOSE,POINT OF CARE 194 MG/DL (70-110)
[2018-09-09] MEDS: GlipiZIDE 5 MG TABLET PO SCH (06:45)
[2018-09-09] MEDS: FERROUS SULFATE 325 MG EC TABLET PO SCH ×2 (06:46→12:57)
[2018-09-09] MEDS: MetFORMIN HCL 500 MG TABLET PO SCH (06:46)
[2018-09-09] MEDS: INSULIN LISPRO 100 UNITS/ML SQ PRN ×2 (06:49→11:47)
[2018-09-09 08:03] VITALS: BP 105/58
[2018-09-09] MEDS: FLUoxetine HCL 20 MG CAPSULE PO SCH (08:33)
[2018-09-09] MEDS: DIVALPROEX SODIUM 500 MG DR TABLET PO SCH (08:33)
[2018-09-09] MEDS ORDERED: GLIP5TAB3 PO (10:52)
[2018-09-09] MEDS ORDERED: DIVA-78 PO (10:52)
[2018-09-09] MEDS ORDERED: METF-960 PO (10:53)
[2018-09-09] MEDS ORDERED: FLUO10CA21 PO (10:54)
[2018-09-09] MEDS ORDERED: PALI6 PO (10:54)
[2018-09-09 11:48] LABS: GLUCOMETER DEV NAME(LOC) BV3N5; GLUCOSE,POINT OF CARE 179 MG/DL (70-110)
== END 2018-09-09 13:30 | disposition home or self-care (01) | DRG 750 ==
LOC: EMS 13:06 → B3A 17:50
PROVIDERS: ADMIT Psychiatry & Neurology Psychiatry; ATTEND Psychiatry & Neurology Psychiatry
DX: F20.0 Paranoid schizophrenia (principal); E11.65 Type 2 diabetes mellitus with hyperglycemia; Z91.14 Patient's other noncompliance with medication regimen; F10.10 Alcohol abuse, uncomplicated; F94.0 Selective mutism; D64.9 Anemia, unspecified; G47.00 Insomnia, unspecified; F17.210 Nicotine dependence, cigarettes, uncomplicated; F19.10 Other psychoactive substance abuse, uncomplicated; F14.90 Cocaine use, unspecified, uncomplicated; Z79.899 Other long term (current) drug therapy; Z71.41 Alcohol abuse counseling and surveillance of alcoholic; Z71.6 Tobacco abuse counseling; Z71.51 Drug abuse counseling and surveillance of drug abuser; Z79.84 Long term (current) use of oral hypoglycemic drugs
CPT/HCPCS: 83036; 84443; 90686; 96372; G0480; J1630; J1815; J2060

== ENCOUNTER 2018-08-15 12:56 | Emergency (ER) | payer SELFPAY ==
[~2018-08-15] VITALS: Ht 167.6 cm; Wt 74.0 kg
[2018-08-15] MEDS ORDERED: FERR-89 PO (13:11)
[2018-08-15] MEDS ORDERED: PALI6 PO (13:11)
[2018-08-15] MEDS ORDERED: LORazepam 2 MG/ML VIAL IVP ONE (13:45)
[2018-08-15] MEDS ORDERED: INSULIN REGULAR, HUMAN 100 UNITS/ML IVP ONE (13:45)
[2018-08-15] MEDS ORDERED: SODIUM CHLORIDE 0.9% 1,000 ML IV ONE (13:45)
[2018-08-15 14:13] LABS: ANION GAP 8 mmol/L (8-16); CALCIUM, TOTAL 8.9 mg/dL (8.8-10.5); CARBON DIOXIDE 27 mmol/L (22-29); CHLORIDE 98 mmol/L (98-107); CREATININE 0.98 mg/dL (0.60-1.30); GLOMERULAR FILTR. RATE CALC > 60 mL/min (>60); POTASSIUM 4.5 mmol/L (3.5-5.1); SODIUM SERUM 133 mmol/L (136-145); UREA NITROGEN, BLOOD 18 mg/dL (7-18)
[2018-08-15 14:16] LABS: GLUCOSE,RANDOM 463 mg/dL (70-110)
[2018-08-15 15:55] VITALS: BP 99/58
[2018-08-16 15:57] LABS: GLUCOSE,POINT OF CARE 418 MG/DL (70-110)
[2018-08-16 15:57] LABS: GLUCOSE,POINT OF CARE 213 MG/DL (70-110)
== END 2018-08-15 16:13 | disposition other institution (70) ==
LOC: EMS 12:58
DX: E11.65 Type 2 diabetes mellitus with hyperglycemia (principal); F20.0 Paranoid schizophrenia; F17.210 Nicotine dependence, cigarettes, uncomplicated; F14.90 Cocaine use, unspecified, uncomplicated; Z79.84 Long term (current) use of oral hypoglycemic drugs; Z79.899 Other long term (current) drug therapy
CPT/HCPCS: 36415; 80048; 82948; 82962; 96361; 96374; 96375; 99291; J1815; J2060